=== PATIENT | female | born 1990 | race Caucasian/White ===

== ENCOUNTER 2019-04-05 16:03 | Emergency (ER) | payer OTHER ==
[~2019-04-05] VITALS: Ht 152.4 cm; Wt 49.0 kg
[2019-04-05] MEDS ORDERED: PRENA1 CHEW TA1.4 MG PO (16:26)
[2019-04-05] MEDS ORDERED: ZANTAC 150MG T150 MG PO (16:26)
[2019-04-05 16:34] LABS: URINE BILIRUBIN NEGATIVE (Negative); URINE BLOOD NEGATIVE (Negative); URINE CLARITY SL CLOUDY; URINE COLOR YELLOW; URINE GLUCOSE-RANDOM NEGATIVE (Negative); URINE KETONES NEGATIVE (Negative); URINE LEUKOCYTES-REFLEX NEGATIVE (Negative); URINE NITRITE-REFLEX NEGATIVE (Negative); URINE PROTEIN 2+ (Negative)
[2019-04-05 17:08] LABS: SQUAMOUS >10 Many /LPF (0-3)
[2019-04-05 17:09] LABS: BACTERIA-REFLEX 1-9 Few /HPF (None Seen); CASTS None Seen /LPF (None Seen)
[2019-04-05 17:13] VITALS: BP 114/70
[2019-04-05 17:15] LABS: AMORPHOUS PHOSPHATES Moderate /LPF (None Seen); MUCUS None Seen strn/LPF (None Seen)
[2019-04-05 17:16] LABS: URINE RBC None Seen /HPF (0-2); URINE WBC-REFLEX None Seen /HPF (0-5)
== END 2019-04-05 17:14 | disposition home or self-care (01) ==
LOC: M.ERS 16:03
PROVIDERS: Nurse Practitioner Psychiatric/Mental Health
DX: O99.511 Diseases of the respiratory system complicating pregnancy, first trimester (principal); O99.611 Diseases of the digestive system complicating pregnancy, first trimester; Z3A.01 Less than 8 weeks gestation of pregnancy; Z72.51 High risk heterosexual behavior

== ENCOUNTER 2019-06-25 21:19 | Emergency (ER) | payer OTHER, MEDICAID ==
[~2019-06-25] VITALS: Ht 152.4 cm; Wt 54.4 kg
[~2019-06-25 21:19] MED LIST: PRENA1 CHEW TA1.4 MG PO; ZANTAC 150MG T150 MG PO
[2019-06-25 21:37] LABS: URINE BILIRUBIN NEGATIVE (Negative); URINE BLOOD 1+ (Negative); URINE CLARITY CLEAR; URINE COLOR YELLOW; URINE GLUCOSE-RANDOM NEGATIVE (Negative); URINE KETONES NEGATIVE (Negative); URINE LEUKOCYTES-REFLEX NEGATIVE (Negative); URINE NITRITE-REFLEX NEGATIVE (Negative); URINE PROTEIN NEGATIVE (Negative); URINE SPECIFIC GRAVITY >= 1.030 (1.005-1.030); URINE UROBILINOGEN 0.2 E.U./dl (0.2-1.0)
[2019-06-25 21:39] LABS: SQUAMOUS 4-10 Moderate /LPF (0-3)
[2019-06-25 21:40] LABS: BACTERIA-REFLEX None Seen /HPF (None Seen); CASTS None Seen /LPF (None Seen); CRYSTALS None Seen /LPF (None Seen); URINE RBC 0-2 Rare /HPF (0-2); URINE WBC-REFLEX None Seen /HPF (0-5)
[2019-06-25 22:54] VITALS: BP 131/78
[2019-06-29 21:10] LABS: HSV 1 DNA Negative (Negative); HSV 2 DNA Positive (Negative)
== END 2019-06-25 22:55 | disposition home or self-care (01) ==
LOC: M.ERS 21:19
PROVIDERS: Emergency Medicine
DX: N89.8 Other specified noninflammatory disorders of vagina (principal); K21.9 Gastro-esophageal reflux disease without esophagitis

== ENCOUNTER 2019-06-28 18:20 | Emergency (ER) | payer OTHER, MEDICAID ==
[~2019-06-28] VITALS: Ht 162.6 cm; Wt 59.0 kg
[2019-06-28] MEDS ORDERED: ZOVIRAX400 MG PO (18:35)
[2019-06-28 18:40] VITALS: BP 146/83
== END 2019-06-28 18:41 | disposition home or self-care (01) ==
LOC: M.ERS 18:20
DX: N89.8 Other specified noninflammatory disorders of vagina (principal); K21.9 Gastro-esophageal reflux disease without esophagitis

== ENCOUNTER 2019-09-14 18:02 | Emergency (ER) | payer OTHER, MEDICAID ==
[~2019-09-14] VITALS: Ht 152.4 cm; Wt 60.8 kg
[~2019-09-14 18:02] MED LIST changes: +ZOVIRAX400 MG PO
[2019-09-14] MEDS ORDERED: MEDROXYPROGESTERONE (18:20)
[2019-09-14 18:36] LABS: URINE BILIRUBIN NEGATIVE (Negative); URINE BLOOD NEGATIVE (Negative); URINE CLARITY CLEAR; URINE COLOR YELLOW; URINE GLUCOSE-RANDOM NEGATIVE (Negative); URINE KETONES NEGATIVE (Negative); URINE LEUKOCYTES-REFLEX NEGATIVE (Negative); URINE NITRITE-REFLEX NEGATIVE (Negative); URINE PROTEIN NEGATIVE (Negative); URINE UROBILINOGEN 0.2 E.U./dl (0.2-1.0)
== END 2019-09-14 22:44 | disposition left against medical advice (07) ==
LOC: M.ERS 18:02
PROVIDERS: Nurse Practitioner Family
DX: N76.0 Acute vaginitis (principal); B96.89 Other specified bacterial agents as the cause of diseases classified elsewhere; K21.9 Gastro-esophageal reflux disease without esophagitis

== ENCOUNTER 2020-02-18 15:55 | Emergency (ER) | payer OTHER, MEDICAID ==
[~2020-02-18] VITALS: Ht 152.4 cm; Wt 63.5 kg
[~2020-02-18 15:55] MED LIST changes: +MEDROXYPROGESTERONE
[2020-02-18] MEDS ORDERED: KEFLEX500 M1 PO (16:08)
[2020-02-18] MEDS ORDERED: MEDROLDOSEPACK PO (17:30)
[2020-02-18] MEDS ORDERED: PROAIR HFA8.5 GM INH (17:30)
[2020-02-18] MEDS ORDERED: TESSALON PERLE100 MG PO (17:30)
[2020-02-18 17:55] VITALS: BP 130/70
== END 2020-02-18 17:40 | disposition home or self-care (01) ==
LOC: M.ERS 15:55
DX: J06.9 Acute upper respiratory infection, unspecified (principal); K21.9 Gastro-esophageal reflux disease without esophagitis; Z20.828 Contact with and (suspected) exposure to other viral communicable diseases

== ENCOUNTER 2021-02-17 16:35 | Emergency (ER) | payer OTHER, MEDICAID ==
[~2021-02-17] VITALS: Ht 152.4 cm; Wt 63.5 kg
[~2021-02-17 16:35] MED LIST changes: +KEFLEX500 M1 PO; +MEDROLDOSEPACK PO; +PROAIR HFA8.5 GM INH; +TESSALON PERLE100 MG PO
[2021-02-17 16:58] LABS: URINE BILIRUBIN NEGATIVE (Negative); URINE BLOOD NEGATIVE (Negative); URINE CLARITY CLEAR; URINE COLOR YELLOW; URINE GLUCOSE-RANDOM NEGATIVE (Negative); URINE KETONES TRACE (Negative); URINE LEUKOCYTES-REFLEX 2+ (Negative); URINE NITRITE-REFLEX NEGATIVE (Negative); URINE PROTEIN TRACE (Negative)
[2021-02-17 17:05] LABS: CASTS None Seen /LPF (None Seen); CRYSTALS None Seen /LPF (None Seen); SQUAMOUS 0-3 Few /LPF (0-3); URINE RBC 3-10 Few /HPF (0-2); URINE WBC-REFLEX 6-15 Few /HPF (0-5)
[2021-02-17] MEDS ORDERED: CEPHALEXIN500 MG PO (18:35)
[2021-02-17] MEDS ORDERED: DIFLUCAN150 M1 PO (18:35)
[2021-02-17 18:45] VITALS: BP 129/71
== END 2021-02-17 18:45 | disposition home or self-care (01) ==
LOC: M.ERS 16:35
PROVIDERS: Nurse Practitioner Family
DX: N30.01 Acute cystitis with hematuria (principal); N89.8 Other specified noninflammatory disorders of vagina; K21.9 Gastro-esophageal reflux disease without esophagitis

== ENCOUNTER 2021-05-17 22:38 | Emergency (ER) | payer OTHER, MEDICAID ==
[~2021-05-17] VITALS: Ht 152.4 cm; Wt 64.8 kg
[~2021-05-17 22:38] MED LIST changes: +CEPHALEXIN500 MG PO; +DIFLUCAN150 M1 PO
[2021-05-17 22:54] VITALS: BP 151/101
== END 2021-05-17 22:58 | disposition home or self-care (01) ==
LOC: M.ERS 22:38
DX: S01.81XA Laceration without foreign body of other part of head, initial encounter (principal); K21.9 Gastro-esophageal reflux disease without esophagitis; Y04.8XXA Assault by other bodily force, initial encounter; Y93.89 Activity, other specified; Y92.89 Other specified places as the place of occurrence of the external cause; Y99.8 Other external cause status

== ENCOUNTER 2021-07-24 11:54 | Emergency (ER) | payer OTHER, MEDICAID ==
[~2021-07-24] VITALS: Ht 152.4 cm; Wt 63.5 kg
[2021-07-24] MEDS ORDERED: AMOXICILLIN 50500 M1 PO (13:05)
[2021-07-24] MEDS ORDERED: DIFLUCAN150 MG PO (13:05)
[2021-07-24 13:11] VITALS: BP 118/88
== END 2021-07-24 13:12 | disposition home or self-care (01) ==
LOC: M.ERS 11:54
DX: J02.0 Streptococcal pharyngitis (principal); K21.9 Gastro-esophageal reflux disease without esophagitis

== ENCOUNTER 2021-08-15 16:30 | Emergency (ER) | payer OTHER, MEDICAID ==
[~2021-08-15 16:30] MED LIST changes: +AMOXICILLIN 50500 M1 PO; +DIFLUCAN150 MG PO
[2021-08-16] MEDS ORDERED: FLEXERIL PO (00:14)
[2021-08-16] MEDS ORDERED: TESSALON PERLE100 MG PO (00:14)
[2021-08-16] MEDS ORDERED: TAMIFLU75 MG PO (00:14)
== END 2021-08-15 16:41 | disposition left against medical advice (07) ==
LOC: M.ERS 16:30
DX: R05.9 Cough, unspecified (principal); M79.10 Myalgia, unspecified site; Z53.21 Procedure and treatment not carried out due to patient leaving prior to being seen by health care provider

== ENCOUNTER 2021-08-15 23:31 | Emergency (ER) | payer OTHER, MEDICAID ==
[~2021-08-15] VITALS: Ht 152.4 cm; Wt 65.8 kg
[2021-08-15 23:43] VITALS: BP 155/86
[2021-08-16 00:06] LABS: INFLUENZA A ANTIGEN Positive (Negative); INFLUENZA B ANTIGEN Negative (Negative)
[2021-08-16] MEDS ORDERED: TAMIFLU75 MG PO (00:14)
[2021-08-16] MEDS ORDERED: FLEXERIL PO (00:14)
[2021-08-16] MEDS ORDERED: TESSALON PERLE100 MG PO (00:14)
== END 2021-08-16 00:21 | disposition home or self-care (01) ==
LOC: M.ERS 23:31
PROVIDERS: Nurse Practitioner Family
DX: J10.1 Influenza due to other identified influenza virus with other respiratory manifestations (principal); K21.9 Gastro-esophageal reflux disease without esophagitis